=== PATIENT | male | born 1950 | race Two or more races ===

== ENCOUNTER 2024-06-26 12:52 | Emergency (ER) | payer OTHER ==
[~2024-06-26] VITALS: Ht 170.2 cm; Wt 68.0 kg
[2024-06-26] MEDS ORDERED: COZAAR50 MG PO (13:43)
[2024-06-26] MEDS ORDERED: LEVOTHYROXINE25 MCG PO (13:44)
[2024-06-26] MEDS ORDERED: FINASTERIDE5 MG PO (13:44)
[2024-06-26] MEDS ORDERED: ATORVASTATIN CA20 MG PO (13:44)
[2024-06-26] MEDS ORDERED: LACTULOSE 20 G/30 ML BLIST.PACK PO ONE (15:00)
[2024-06-26] MEDS ORDERED: MINERAL OIL 30 ML BLIST.PACK PO ONE (15:00)
[2024-06-26] MEDS ORDERED: MAGNESIUM HYDROXIDE 400 MG/5 ML ML PO ONE (15:00)
[2024-06-26] MEDS ORDERED: 0.9 % SODIUM CHLORIDE 1,000 ML IV SCH (15:00)
[2024-06-26] MEDS ORDERED: LACTULOSE 20 G/30 ML BLIST.PACK ONE (15:15)
[2024-06-26] MEDS ORDERED: MAGNESIUM HYDROXIDE 30 ML BLIST.PACK PO ONE (15:15)
[2024-06-26] MEDS ORDERED: MINERAL OIL 30 ML BLIST.PACK ONE (15:15)
[2024-06-26] MEDS ORDERED: METHYLPREDNISOLONE SOD SUCC 125 MG VIAL IV ONE (15:30)
[2024-06-26 15:42] LABS: HEMATOCRIT 42.7 % (39.0-48.0); HEMOGLOBIN 13.8 g/dL (13-16.00); MEAN CELL VOLUME 86.1 fL (80.0-100.00); MEAN CORPUSCULAR HEMOGLOBIN 27.8 pg (27.00-32.0); MEAN CORPUSCULAR HGB CONC 32.3 g/dl (32.0-36.0); PLATELET COUNT 327 K/uL (150-450); RED BLOOD COUNT 4.96 M/uL (4.00-6.00); RED CELL DISTRIBUTION WIDTH 14.7 % (11.5-14.5)
[2024-06-26 15:51] LABS: PH,URINE 5.5 (5.0-8.0); URINE APPEARANCE Clear; URINE BILIRRUBIN Negative (NEGATIVE); URINE BLOOD Negative; URINE COLOR Yellow; URINE GLUCOSE Negative (NEGATIVE); URINE KETONE Negative (NEGATIVE); URINE LEUKOCYTE Negative; URINE NITRATE Negative; URINE PROTEIN Negative (NEGATIVE); URINE UROBILINOGEN 0.2 E.U./dl
[2024-06-26 16:02] LABS: URINE BACTERIA 1.2 uL (0.0-1933); URINE CAST 0.14 uL (0.0-1.40); URINE EPITHELIAL CELLS 0.9 uL (0.0-38.8); URINE RBC 0.7 uL (0.0-20.8); URINE WBC 0.4 uL (0.0-23.2)
[2024-06-26 16:06] LABS: CALCIUM 9.8 mg/dL (8.5-10.1); GFR 73.04; POTASSIUM 4.31 mEq/L (3.5-5.1)
[2024-06-26] MEDS ORDERED: DIATRIZOATE MEGLUMINE, SODIUM 30 ML BOTTLE PO ONE (17:30)
== END 2024-06-26 21:57 | disposition home or self-care (01) ==
LOC: ER 12:54
PROVIDERS: Emergency Medicine
DX: R10.9 Unspecified abdominal pain (principal); I10 Essential (primary) hypertension; E03.8 Other specified hypothyroidism
CPT/HCPCS: 36415; 74022; 74177; 96365; 96366; 99284; J7030; Q9965

== ENCOUNTER 2024-07-31 05:44 | Day surgery (SDC) | payer OTHER ==
[2024-07-25 08:43] LABS: HEMATOCRIT 42.6 % (39.0-48.0); HEMOGLOBIN 13.8 g/dL (13-16.00); MEAN CORPUSCULAR HEMOGLOBIN 27.9 pg (27.00-32.0); MEAN CORPUSCULAR HGB CONC 32.5 g/dl (32.0-36.0); PLATELET COUNT 360 K/uL (150-450); RED BLOOD COUNT 4.96 M/uL (4.00-6.00); RED CELL DISTRIBUTION WIDTH 14.7 % (11.5-14.5)
[2024-07-25 09:03] LABS: URINE BACTERIA 8.5 uL (0.0-1933); URINE EPITHELIAL CELLS 1.7 uL (0.0-38.8); URINE WBC 1.8 uL (0.0-23.2)
[2024-07-25 09:09] LABS: URINE CAST 0.14 uL (0.0-1.40); URINE RBC 1.6 uL (0.0-20.8)
[2024-07-25 09:23] LABS: URINE BILIRRUBIN NEGATIVE (NEGATIVE); URINE BLOOD NEGATIVE; URINE GLUCOSE NEGATIVE (NEGATIVE); URINE KETONE NEGATIVE (NEGATIVE); URINE LEUKOCYTE NEGATIVE; URINE NITRATE NEGATIVE; URINE PROTEIN NEGATIVE (NEGATIVE); URINE UROBILINOGEN 0.2 E.U./dl
[2024-07-25 09:25] LABS: URINE APPEARANCE SL CLOUDY; URINE COLOR YELLOW
[2024-07-25 09:30] LABS: ALBUMIN 3.7 gm/dL (3.4-5.0); BILIRUBIN TOTAL 0.61 mg/dL (0.3-1.2); CALCIUM 9.8 mg/dL (8.5-10.1); CREATININE SERUM 0.95 mg/dL (0.70-1.30); GFR 77.5; GLOBULINA 3.3 G/DL (2.4-3.5); POTASSIUM 5.27 mEq/L (3.5-5.1)
[2024-07-25 09:36] LABS: PARTIAL THROMBOPLASTIN TIME 26.8 SECONDS (22.0-34.0); PROTHROMBIN TIME 10.9 SECONDS (9.0-11.5)
[~2024-07-31 05:44] MED LIST: ATORVASTATIN CA20 MG PO; COZAAR50 MG PO; FINASTERIDE5 MG PO; LEVOTHYROXINE25 MCG PO
[2024-07-31] MEDS ORDERED: CEFAZOLIN SODIUM 1,000 MG VIAL ONE (08:13)
[2024-07-31] MEDS ORDERED: MIRALAX17 GM PO (10:32)
[2024-07-31] MEDS ORDERED: TYLENOL ARTHRI650 MG PO (10:32)
[2024-07-31] MEDS ORDERED: TRAMADOL HCL50 MG PO (10:32)
[2024-07-31] MEDS ORDERED: KETO10TA2 PO (10:32)
[2024-07-31] MEDS ORDERED: BUPIVACAINE HCL/MPF 0.5% 30ML VIAL ONE (10:40)
== END 2024-07-31 16:20 | disposition home or self-care (01) ==
LOC: CIR.AMB 05:44
PROVIDERS: ATTEND Surgery
DX: K40.90 Unilateral inguinal hernia, without obstruction or gangrene, not specified as recurrent (principal); K42.0 Umbilical hernia with obstruction, without gangrene; I10 Essential (primary) hypertension
CPT/HCPCS: 49650; 49592; C1781